=== PATIENT | male | born 1950 | race Caucasian/White ===

== ENCOUNTER → 2021-02-28 | Outpatient (CLI) | payer MEDICARE, OTHER ==
[2021-02-28 09:37] LABS: BASO # 0.03 (0.02-0.10); EOS # 0.17 (0.04-0.40); EOS % 3.6 % (0.0-4.0); HEMATOCRIT 40.4 % (42.0-52.0); HEMOGLOBIN 12.6 g/dL (13.5-18.0); LYMPH# 0.74 (1.50-4.00); MEAN CELL VOLUME 81 fl (78-100); MEAN CORPUSCULAR HEMOGLOBIN 25 pg (27-31); MEAN CORPUSCULAR HGB CONC 31 g/dL (33-37); MEAN PLATELET VOLUME 9.6 fl (7.4-10.4); MONO # 0.36 (0.20-0.80); PLATELET COUNT 160 K/mm3 (130-400); RED BLOOD COUNT 5.02 M/mm3 (4.20-5.60); RED CELL DISTRIBUTION WIDTH 14.4 % (11.5-14.5); WHITE BLOOD COUNT 4.7 K/mm3 (4.8-10.8)
[2021-02-28 09:44] LABS: ALBUMIN 4.2 g/dL (3.4-4.8); POTASSIUM 4.6 mmol/L (3.5-5.1)
[2021-02-28 09:45] LABS: CALCIUM 10.4 mg/dL (8.3-10.5)
[2021-02-28 09:47] LABS: TOTAL PROTEIN 7.8 g/dL (6.2-8.1)
[2021-02-28 10:41] LABS: ERYTHROCYTE SEDIMENTATION RATE 7 mm/hr (0-20)
== END ==
LOC: LAB 09:20
PROVIDERS: Internal Medicine
DX: Z12.11 Encounter for screening for malignant neoplasm of colon (principal); C61 Malignant neoplasm of prostate; I10 Essential (primary) hypertension; E78.2 Mixed hyperlipidemia

== ENCOUNTER → 2021-03-26 | Outpatient (CLI) | payer MEDICARE, OTHER | LOC: LAB 13:36 | DX: Z12.11 Encounter for screening for malignant neoplasm of colon (principal) ==

== ENCOUNTER 2021-08-23 07:31 | Emergency (ER) | payer MEDICARE, OTHER ==
[~2021-08-23] VITALS: Ht 182.9 cm; Wt 90.9 kg
[2021-08-23] MEDS ORDERED: OLMESARTAN-HCT1 EAC1 PO (07:59)
[2021-08-23] MEDS ORDERED: FLUTICASON0.05 MG/AC NS (08:21)
[2021-08-23] MEDS ORDERED: MELOXICAM7.5 MG PO (08:22)
[2021-08-23] MEDS ORDERED: CLARITIN10 M3 PO (08:22)
[2021-08-23] MEDS ORDERED: GOOD NEIGHBOR M25 M1 PO (09:39)
[2021-08-23] MEDS ORDERED: ZOFRAN ODT4 MG PO (09:39)
== END 2021-08-23 10:20 | disposition home or self-care (01) ==
LOC: ED 07:31
DX: H81.10 Benign paroxysmal vertigo, unspecified ear (principal)

== ENCOUNTER → 2022-05-14 | Outpatient (CLI) | payer MEDICARE, OTHER ==
[~2022-05-14] MED LIST: CLARITIN10 M3 PO; FLUTICASON0.05 MG/AC NS; GOOD NEIGHBOR M25 M1 PO; MELOXICAM7.5 MG PO; OLMESARTAN-HCT1 EAC1 PO; ZOFRAN ODT4 MG PO
[2022-05-14 10:36] LABS: BASO # 0.04 K/mm3 (0.02-0.10); EOS # 0.21 K/mm3 (0.04-0.40); EOS % 4.3 % (0.0-4.0); HEMATOCRIT 42.1 % (42.0-52.0); HEMOGLOBIN 14.8 g/dL (13.5-18.0); LYMPH# 1.15 K/mm3 (1.50-4.00); MEAN CELL VOLUME 85 fl (78-100); MEAN CORPUSCULAR HEMOGLOBIN 30 pg (27-31); MEAN CORPUSCULAR HGB CONC 35 g/dL (33-37); MEAN PLATELET VOLUME 9.7 fl (7.4-10.4); MONO # 0.39 K/mm3 (0.20-0.80); NEU # 3.11 K/mm3 (1.40-6.50); PLATELET COUNT 157 K/mm3 (130-400); RED BLOOD COUNT 4.94 M/mm3 (4.20-5.60); RED CELL DISTRIBUTION WIDTH 12.9 % (11.5-14.5); WHITE BLOOD COUNT 4.9 K/mm3 (4.8-10.8)
[2022-05-14 10:50] LABS: ALBUMIN 4.4 g/dL (3.4-4.8); POTASSIUM 4.1 mmol/L (3.5-5.1)
[2022-05-14 10:53] LABS: TOTAL PROTEIN 7.7 g/dL (6.2-8.1)
[2022-05-14 10:54] LABS: TOTAL BILIRUBIN 1.2 mg/dL (0.2-1.2)
[2022-05-14 10:59] LABS: MAGNESIUM 1.86 mg/dL (1.60-2.60)
[2022-05-14 13:06] LABS: ERYTHROCYTE SEDIMENTATION RATE 10 mm/hr (0-20)
== END ==
LOC: LAB 09:59
PROVIDERS: Internal Medicine
DX: Z12.11 Encounter for screening for malignant neoplasm of colon (principal); I10 Essential (primary) hypertension; K90.9 Intestinal malabsorption, unspecified; E78.2 Mixed hyperlipidemia; C61 Malignant neoplasm of prostate; E61.1 Iron deficiency

== ENCOUNTER → 2022-05-27 | Outpatient (CLI) | payer MEDICARE, OTHER | LOC: LAB 08:31 | DX: J02.9 Acute pharyngitis, unspecified (principal) ==

== ENCOUNTER → 2022-07-21 | Outpatient (CLI) | payer MEDICARE, OTHER | LOC: LAB 14:58 | DX: C61 Malignant neoplasm of prostate (principal); I10 Essential (primary) hypertension; E78.2 Mixed hyperlipidemia; J30.2 Other seasonal allergic rhinitis; K21.9 Gastro-esophageal reflux disease without esophagitis; E61.1 Iron deficiency; M25.552 Pain in left hip; M10.9 Gout, unspecified ==

== ENCOUNTER 2022-07-29 13:47 | Emergency (ER) | payer MEDICARE, OTHER ==
[~2022-07-29] VITALS: Wt 92.6 kg
[~2022-07-29 13:47] MED LIST changes: +COLCHICINE0.6 M1 PO; +ONDANSETRON HYDR4 MG PO; +PERCOCET 325 MG1 TA2 PO; +PREDNISONE20 M1 PO
[2022-07-29 14:24] LABS: BASO # 0.03 K/mm3 (0.02-0.10); EOS # 0.05 K/mm3 (0.04-0.40); EOS % 0.6 % (0.0-4.0); HEMATOCRIT 49.3 % (42.0-52.0); HEMOGLOBIN 17.2 g/dL (13.5-18.0); LYMPH# 1.47 K/mm3 (1.50-4.00); MEAN CELL VOLUME 82 fl (78-100); MEAN CORPUSCULAR HEMOGLOBIN 29 pg (27-31); MEAN CORPUSCULAR HGB CONC 35 g/dL (33-37); MEAN PLATELET VOLUME 9.3 fl (7.4-10.4); MONO # 0.72 K/mm3 (0.20-0.80); NEU # 6.58 K/mm3 (1.40-6.50); PLATELET COUNT 207 K/mm3 (130-400); RED BLOOD COUNT 6.02 M/mm3 (4.20-5.60); RED CELL DISTRIBUTION WIDTH 13.5 % (11.5-14.5); WHITE BLOOD COUNT 8.9 K/mm3 (4.8-10.8)
[2022-07-29 14:39] LABS: ALBUMIN 4.7 g/dL (3.4-4.8); POTASSIUM 3.6 mmol/L (3.5-5.1); SODIUM 139 mmol/L (136-145)
[2022-07-29 14:40] LABS: CALCIUM 10.9 mg/dL (8.3-10.5)
[2022-07-29 14:41] LABS: GLUCOSE 123 mg/dL (75-110)
[2022-07-29 14:42] LABS: TOTAL PROTEIN 8.4 g/dL (6.2-8.1)
[2022-07-29 14:43] LABS: CARBON DIOXIDE 25 mmol/L (23-31); TOTAL BILIRUBIN 1.8 mg/dL (0.2-1.2)
[2022-07-29 14:47] LABS: AST-SGOT 59 U/L (5-34)
[2022-07-29 14:48] LABS: ALT/SGPT 85 U/L (0-55)
[2022-07-29 14:57] LABS: TROPONIN-I < 0.030 ng/mL (<0.030)
[2022-07-29 17:31] LABS: URINE APPEARANCE CLEAR; URINE BILIRUBIN NEGATIVE (NEGATIVE); URINE BLOOD NEGATIVE (NEGATIVE); URINE COLOR YELLOW; URINE GLUCOSE NEGATIVE (NEGATIVE); URINE KETONE NEGATIVE (NEGATIVE); URINE LEUKOCYTE ESTERASE NEGATIVE (NEGATIVE); URINE MUCUS PRESENT (NOT PRESENT); URINE NITRATE NEGATIVE (NEGATIVE); URINE PROTEIN(semi-quant) TRACE (NEGATIVE); URINE UROBILINOGEN NORMAL (NORMAL); URINE WBC 0-1 /hpf (0-3)
[2022-07-29 17:50] VITALS: BP 152/90
== END 2022-07-29 17:50 | disposition home or self-care (01) ==
LOC: ED 13:47
PROVIDERS: Physician Assistant
DX: R42 Dizziness and giddiness (principal); R11.2 Nausea with vomiting, unspecified; Z28.310 Unvaccinated for COVID-19
CPT/HCPCS: J2550; J7030

== ENCOUNTER → 2023-08-10 | Outpatient (CLI) | payer MEDICARE, OTHER | LOC: RAD 13:53 → VAS 15:20 | DX: I51.7 Cardiomegaly (principal); I35.1 Nonrheumatic aortic (valve) insufficiency; I50.32 Chronic diastolic (congestive) heart failure ==

== ENCOUNTER → 2023-12-12 | Outpatient (CLI) | payer MEDICARE, OTHER ==
[2023-12-12 11:01] LABS: BASO # 0.02 K/mm3 (0.02-0.10); EOS # 0.09 K/mm3 (0.04-0.40); EOS % 1.6 % (0.0-4.0); HEMATOCRIT 39.3 % (42.0-52.0); HEMOGLOBIN 13.2 g/dL (13.5-18.0); LYMPH# 0.96 K/mm3 (1.50-4.00); MEAN CELL VOLUME 88 fl (78-100); MEAN CORPUSCULAR HEMOGLOBIN 29 pg (27-31); MEAN CORPUSCULAR HGB CONC 34 g/dL (33-37); MEAN PLATELET VOLUME 9.4 fl (7.4-10.4); MONO # 0.46 K/mm3 (0.20-0.80); NEU # 4.18 K/mm3 (1.40-6.50); PLATELET COUNT 139 K/mm3 (130-400); RED BLOOD COUNT 4.49 M/mm3 (4.20-5.60); RED CELL DISTRIBUTION WIDTH 14.4 % (11.5-14.5); WHITE BLOOD COUNT 5.7 K/mm3 (4.8-10.8)
== END ==
LOC: LAB 10:48
PROVIDERS: Nurse Practitioner Family
DX: M25.521 Pain in right elbow (principal)

== ENCOUNTER 2023-12-28 12:07 | Emergency (ER) | payer MEDICARE, OTHER ==
[~2023-12-28] VITALS: Ht 182.9 cm; Wt 94.3 kg
[2023-12-28] MEDS ORDERED: CLOPIDOGREL75 M2 PO (12:29)
[2023-12-28] MEDS ORDERED: AMLODIPINE BESYL5 MG PO (12:29)
[2023-12-28] MEDS ORDERED: ALLOPURINOL300 M1 PO (12:29)
[2023-12-28] MEDS ORDERED: ASPIRIN E.C. 8181 MG PO (12:30)
[2023-12-28] MEDS ORDERED: LIPITOR 10M10 MG/TAB PO (12:31)
[2023-12-28 12:51] LABS: BASO # 0.03 K/mm3 (0.02-0.10); EOS # 0.12 K/mm3 (0.04-0.40); EOS % 1.7 % (0.0-4.0); HEMATOCRIT 40.7 % (42.0-52.0); HEMOGLOBIN 13.6 g/dL (13.5-18.0); LYMPH# 1.21 K/mm3 (1.50-4.00); MEAN CELL VOLUME 88 fl (78-100); MEAN CORPUSCULAR HEMOGLOBIN 29 pg (27-31); MEAN CORPUSCULAR HGB CONC 33 g/dL (33-37); MEAN PLATELET VOLUME 9.2 fl (7.4-10.4); MONO # 0.56 K/mm3 (0.20-0.80); NEU # 5.24 K/mm3 (1.40-6.50); PLATELET COUNT 171 K/mm3 (130-400); RED BLOOD COUNT 4.64 M/mm3 (4.20-5.60); RED CELL DISTRIBUTION WIDTH 14.3 % (11.5-14.5); WHITE BLOOD COUNT 7.2 K/mm3 (4.8-10.8)
[2023-12-28 12:55] LABS: ALBUMIN 4.2 g/dL (3.4-4.8); SODIUM 139 mmol/L (136-145)
[2023-12-28 12:56] LABS: CALCIUM 10.2 mg/dL (8.3-10.5)
[2023-12-28 12:57] LABS: GLUCOSE 152 mg/dL (75-110)
[2023-12-28 12:58] LABS: TOTAL PROTEIN 6.9 g/dL (6.2-8.1)
[2023-12-28 12:59] LABS: CARBON DIOXIDE 22 mmol/L (23-31)
[2023-12-28 13:03] LABS: AST-SGOT 36 U/L (5-34)
[2023-12-28 13:04] LABS: ALT/SGPT 43 U/L (0-55)
[2023-12-28 13:10] LABS: TROPONIN-I < 0.030 ng/mL (0.00-0.033)
[2023-12-28 13:56] VITALS: BP 126/68
== END 2023-12-28 13:58 | disposition home or self-care (01) ==
LOC: ED 12:07
PROVIDERS: Physician Assistant
DX: R07.89 Other chest pain (principal)

== ENCOUNTER → 2024-01-08 | Outpatient (CLI) | payer MEDICARE, OTHER ==
[~2024-01-08] MED LIST changes: +ALLOPURINOL300 M1 PO; +AMLODIPINE BESYL5 MG PO; +ASPIRIN E.C. 8181 MG PO; +CLOPIDOGREL75 M2 PO; +LIPITOR 10M10 MG/TAB PO
[2024-01-08 09:12] LABS: BASO # 0.04 K/mm3 (0.02-0.10); EOS % 4.2 % (0.0-4.0); HEMATOCRIT 41.1 % (42.0-52.0); HEMOGLOBIN 13.9 g/dL (13.5-18.0); MEAN CELL VOLUME 87 fl (78-100); MEAN CORPUSCULAR HEMOGLOBIN 29 pg (27-31); MEAN CORPUSCULAR HGB CONC 34 g/dL (33-37); MEAN PLATELET VOLUME 9.3 fl (7.4-10.4); MONO # 0.39 K/mm3 (0.20-0.80); NEU # 3.03 K/mm3 (1.40-6.50); PLATELET COUNT 149 K/mm3 (130-400); RED BLOOD COUNT 4.74 M/mm3 (4.20-5.60); RED CELL DISTRIBUTION WIDTH 13.8 % (11.5-14.5); WHITE BLOOD COUNT 4.8 K/mm3 (4.8-10.8)
[2024-01-08 09:57] LABS: PROTHROMBIN TIME 10.8 SECONDS (9.0-12.0)
[2024-01-08 10:02] LABS: URINE APPEARANCE SLIGHTLY CLOUDY (CLEAR); URINE BILIRUBIN NEGATIVE (NEGATIVE); URINE COLOR DARK YELLOW (YELLOW); URINE GLUCOSE NEGATIVE (NEGATIVE); URINE KETONE TRACE (NEGATIVE); URINE PROTEIN(semi-quant) TRACE (NEGATIVE)
[2024-01-08 10:03] LABS: URINE BLOOD NEGATIVE (NEGATIVE); URINE LEUKOCYTE ESTERASE NEGATIVE (NEGATIVE); URINE NITRATE NEGATIVE (NEGATIVE)
[2024-01-08 10:04] LABS: URINE MUCUS PRESENT (NOT PRESENT)
[2024-01-08 10:27] LABS: ALBUMIN 4.5 g/dL (3.4-4.8)
[2024-01-08 10:29] LABS: CALCIUM 10.7 mg/dL (8.3-10.5)
[2024-01-08 10:30] LABS: TOTAL PROTEIN 7.4 g/dL (6.2-8.1)
[2024-01-08 10:32] LABS: TOTAL BILIRUBIN 1.3 mg/dL (0.2-1.2)
[2024-01-08 10:36] LABS: MAGNESIUM 2.03 mg/dL (1.60-2.60)
== END ==
LOC: LAB 08:52
PROVIDERS: Internal Medicine
DX: Z01.818 Encounter for other preprocedural examination (principal); C61 Malignant neoplasm of prostate; K90.9 Intestinal malabsorption, unspecified

== ENCOUNTER → 2024-05-09 | Outpatient (CLI) | payer MEDICARE, OTHER | LOC: LAB 14:14 | DX: R97.8 Other abnormal tumor markers (principal) ==

== ENCOUNTER → 2024-06-30 | Outpatient (CLI) | payer MEDICARE, OTHER ==
[2024-06-30 10:14] LABS: BASO # 0.02 K/mm3 (0.02-0.10); EOS # 0.13 K/mm3 (0.04-0.40); EOS % 2.8 % (0.0-4.0); HEMATOCRIT 41.2 % (42.0-52.0); HEMOGLOBIN 13.6 g/dL (13.5-18.0); LYMPH# 0.97 K/mm3 (1.50-4.00); MEAN CELL VOLUME 86 fl (78-100); MEAN CORPUSCULAR HEMOGLOBIN 28 pg (27-31); MEAN CORPUSCULAR HGB CONC 33 g/dL (33-37); MEAN PLATELET VOLUME 9.1 fl (7.4-10.4); MONO # 0.35 K/mm3 (0.20-0.80); NEU # 3.18 K/mm3 (1.40-6.50); PLATELET COUNT 183 K/mm3 (130-400); RED CELL DISTRIBUTION WIDTH 13.6 % (11.5-14.5); WHITE BLOOD COUNT 4.7 K/mm3 (4.8-10.8)
[2024-06-30 10:21] LABS: ALBUMIN 4.6 g/dL (3.4-4.8)
[2024-06-30 10:23] LABS: CALCIUM 10.2 mg/dL (8.3-10.5)
[2024-06-30 10:24] LABS: TOTAL PROTEIN 7.5 g/dL (6.2-8.1)
[2024-06-30 10:26] LABS: TOTAL BILIRUBIN 1.1 mg/dL (0.2-1.2)
[2024-06-30 10:29] LABS: PH-URINE 5.5 (5.0 - 8.0); URINE APPEARANCE CLEAR (CLEAR); URINE COLOR YELLOW (YELLOW); URINE GLUCOSE NEGATIVE (NEGATIVE); URINE PROTEIN(semi-quant) 1+ (NEGATIVE)
[2024-06-30 10:30] LABS: MAGNESIUM 1.97 mg/dL (1.60-2.60); URINE BILIRUBIN NEGATIVE (NEGATIVE); URINE BLOOD NEGATIVE (NEGATIVE); URINE KETONE NEGATIVE (NEGATIVE); URINE LEUKOCYTE ESTERASE NEGATIVE (NEGATIVE); URINE MUCUS PRESENT (NOT PRESENT); URINE NITRATE NEGATIVE (NEGATIVE)
== END ==
LOC: LAB 09:55
PROVIDERS: Internal Medicine
DX: Z01.818 Encounter for other preprocedural examination (principal); K90.9 Intestinal malabsorption, unspecified